=== PATIENT | female | born 1935 | race Caucasian/White ===

== ENCOUNTER → 2019-03-16 | Outpatient (CLI) | payer OTHER, MEDICARE | LOC: MRI 03-08 11:19 | DX: M51.37 Other intervertebral disc degeneration, lumbosacral region (principal); M47.814 Spondylosis without myelopathy or radiculopathy, thoracic region; M47.817 Spondylosis without myelopathy or radiculopathy, lumbosacral region; M48.04 Spinal stenosis, thoracic region; M48.02 Spinal stenosis, cervical region ==